=== PATIENT | female | born 1995 | race Caucasian/White ===

== ENCOUNTER 2017-10-28 08:58 | Outpatient (CLI) | payer OTHER ==
[2017-10-28] MEDS ORDERED: SINCALIDE 5 MCG VIAL ONE (09:52)
[2017-10-28] MEDS ORDERED: SINCALIDE 1.3 MCG in SODIUM CHLORIDE 0.9% 50 ML IV ONE (11:50)
--- NOTE | 2017-10-28 14:52 | Nuclear Medicine Report ---
Procedure Date: 10/28/2017 Accession Number: [id number] / [id number] Procedure: NM - Hepatobiliary HIDA w/ Rx CPT Code: FULL RESULT: EXAM: HEPATOBILIARY SCAN WITH CCK/KINEVAC ADMINISTRATION EXAM DATE: 10/28/2017 11:53 AM. CLINICAL HISTORY: NAUSEA AND Vomiting, abdominal Pain, epigastric. COMPARISON: None available. TECHNIQUE: Following the intravenous administration of 5.2 mCi of Tc99m Mebrofenin, a hepatobiliary scan was done centered on the liver and gallbladder in multiple sequential images and projections. Following the intravenous administration of 1.3 mcg of CCK/ Kinevac over the course of approximately 60 minutes, dynamic imaging was done and the gallbladder ejection fraction was calculated. FINDINGS: Normal extraction of tracer from the blood pool indicating normal hepatocellular function. The liver size and shape is grossly within normal limits. There is activity visualized within the bile ducts and gallbladder within the first hour. Small bowel activity is present after CCK was administered. With CCK administration, the gallbladder demonstrates an effective contraction. The gallbladder ejection fraction is calculated to be 96%, well above the lower limit of normal of 38% for a 60-minute injection. The patient did not report symptoms after CCK administration. Positive for enterogastric bile reflux. IMPRESSION: 1. Patent cystic duct. 2. Patent common bile duct. 3. Negative for acute or chronic cholecystitis. 4. Positive for enterogastric bile reflux. 5. Gallbladder ejection fraction of 96%. [employer]
== END 2017-10-28 08:59 | disposition home or self-care (01) ==
LOC: DI 08:58
PROVIDERS: ATTEND Physician Assistant Medical
DX: K21.9 Gastro-esophageal reflux disease without esophagitis (principal); R11.2 Nausea with vomiting, unspecified; R10.13 Epigastric pain
CPT/HCPCS: 78227; J7040

== ENCOUNTER 2018-12-30 14:25 | Outpatient (CLI) | payer OTHER | END 2018-12-30 23:59 | disposition home or self-care (01) | LOC: LAB.R 14:25 | PROVIDERS: ATTEND Nurse Practitioner Family | DX: R39.15 Urgency of urination (principal) | CPT/HCPCS: 87086 ==

== ENCOUNTER 2020-03-31 13:50 | Outpatient (CLI) | payer OTHER | END 2020-03-31 23:59 | disposition home or self-care (01) | LOC: LAB.R 13:50 | PROVIDERS: ATTEND Family Medicine | DX: N39.0 Urinary tract infection, site not specified (principal) | CPT/HCPCS: 87086; 87181 ==

== ENCOUNTER 2022-10-11 15:15 | Outpatient (CLI) | payer OTHER | END 2022-10-11 15:30 | disposition home or self-care (01) | LOC: LAB.N 15:15 | PROVIDERS: ATTEND Registered Nurse | DX: R31.9 Hematuria, unspecified (principal); R30.0 Dysuria | CPT/HCPCS: 36415; 84702 ==

== ENCOUNTER 2022-11-27 12:00 | Outpatient (CLI) | payer OTHER ==
[2022-11-27 17:50] LABS: BILIRUBIN,URINE NEGATIVE (NEGATIVE); GLUCOSE, URINE (UA) NEGATIVE (NEGATIVE); KETONES,URINE (UA) TRACE mg/dL (NEGATIVE); LEUKOCYTE ESTERASE, URINE SMALL (NEGATIVE); NITRITE,URINE NEGATIVE (NEGATIVE); OCCULT BLOOD,URINE TRACE-INTA (NEGATIVE); PH,URINE 6.5 PH (5.0-7.5); PROTEIN,URINE NEGATIVE (NEGATIVE); UROBILINOGEN,URINE 0.2 (NORMAL) E.U./dL (NORMAL)
[2022-11-27 18:16] LABS: BACTERIA,URINE Many /HPF (None Seen); CLARITY,URINE CLOUDY (CLEAR); SQUAMOUS EPITHELIAL CELL,UR MANY Squamous (<= Few); WBC CLUMPS,URINE PRESENT; WBC,URINE >25 /HPF (0-5)
[2022-11-27 18:17] LABS: MUCUS,URINE Few Strands
[2022-11-27 20:37] LABS: BACTERIAL VAGINOSIS DNA NEGATIVE (NEGATIVE); CANDIDA GLABRATA DNA NEGATIVE (NEGATIVE); CANDIDA GROUP DNA NEGATIVE (NEGATIVE); CANDIDA KRUSEI DNA NEGATIVE (NEGATIVE); TRICHOMONAS VAGINALIS DNA NEGATIVE (NEGATIVE)
[2022-11-28 01:08] LABS: HBsAG SCREEN Negative (Negative); HEPATITIS B SURFACE AB QUANT 3.9 mIU/mL (Immunity>9.9)
[2022-11-28 02:08] LABS: HCV AB Non Reactive (Non Reactive); HIV SCREEN 4TH GENERATION Non Reactive (Non Reactive)
[2022-11-28 06:11] LABS: RPR Non Reactive (Non Reactive)
== END 2022-11-27 12:15 | disposition home or self-care (01) ==
LOC: LAB.N 12:00
PROVIDERS: ATTEND Emergency Medicine
DX: N76.0 Acute vaginitis (principal); R30.0 Dysuria
CPT/HCPCS: 81001; 81514; 81599; 86317; 86592; 86695; 86696; 86803; 87086; 87340; 87389